=== PATIENT | female | born 1940 | race Caucasian/White ===

== ENCOUNTER 2025-04-20 19:26 | Emergency (ER) | payer BC, MEDICARE ==
[~2025-04-20] VITALS: Ht 175.3 cm; Wt 83.9 kg
[2025-04-20 22:00] LABS: CALCIUM, SERUM 9.4 mg/dL (8.5-10.1); CREATININE 0.8 mg/dL (0.6-1.3); SODIUM SERUM 141.0 mmol/L (136-145); UREA NITROGEN, BLOOD 19.0 mg/dL (7-18)
[2025-04-20 22:12] LABS: NT-PRO BNP 195.0 pg/mL (0-125)
[2025-04-20] MEDS ORDERED: FURO-145 PO (22:20)
[2025-04-20] MEDS ORDERED: FUROSEMIDE 20 MG TABLET ONE (22:27)
[2025-04-20] MEDS: FUROSEMIDE 20 MG TABLET PO ONE (22:32)
[2025-04-20 23:27] VITALS: BP 140/70; TEMP 98; O2SAT 97
== END 2025-04-20 23:28 | disposition home or self-care (01) ==
LOC: ER 19:36
DX: R59.0 Localized enlarged lymph nodes (principal); R60.9 Edema, unspecified; I11.0 Hypertensive heart disease with heart failure; I50.9 Heart failure, unspecified; M06.9 Rheumatoid arthritis, unspecified; Z74.01 Bed confinement status; Z79.899 Other long term (current) drug therapy; Z88.0 Allergy status to penicillin; Z60.2 Problems related to living alone
CPT/HCPCS: 36415; 80048-TC; 83880